=== PATIENT | male | born 1985 | race African-American/Black ===

== ENCOUNTER 2017-04-17 12:33 | Emergency (ER) | payer MEDICAID, OTHER ==
[~2017-04-17] VITALS: Ht 172.7 cm; Wt 110.0 kg
[~2017-04-17 12:33] MED LIST: AMLO10TA55 PO; ASPI81 PO; CLON.2 PO; LOSA50TA37 PO; PHEN100C23 PO; SIMV20TA6 PO
[2017-04-17 14:34] VITALS: BP 133/93
== END 2017-04-17 14:42 | disposition home or self-care (01) ==
LOC: EMS 12:35
DX: Z76.0 Encounter for issue of repeat prescription (principal); I50.9 Heart failure, unspecified; E78.00 Pure hypercholesterolemia, unspecified; Z79.82 Long term (current) use of aspirin
CPT/HCPCS: 99283

== ENCOUNTER 2021-11-29 13:17 | Inpatient (IN) | payer OTHER ==
[~2021-11-29] VITALS: Ht 175.3 cm; Wt 127.7 kg
[~2021-11-29 13:17] MED LIST changes: +ACET-2247 PO; +ASPI-1450 PO; -ASPI81 PO; -CLON.2 PO; +CLON0.1T2 PO; +DSS100 PO; +FAMO20 PO; +FURO40 PO; +HYDR10TA31 PO; -LOSA50TA37 PO; +SIMV-261 PO; -SIMV20TA6 PO; +SPIR-37 PO
[2021-11-29] MEDS ORDERED: 0.9% SODIUM CHLORIDE 10 ML SYRINGE IVP PRN (14:15)
[2021-11-29] MEDS ORDERED: ACETAMINOPHEN 1000 MG/ISO-OSM 100 ML IV ONE (14:15)
[2021-11-29 14:31] LABS: COVID AG,FIA SOURCE NASOPHARYNGEAL
[2021-11-29] MEDS ORDERED: ALBUTEROL SULFATE HFA 90 MCG/PUFF 8 GM INHALER IH ONE (15:00)
[2021-11-29 15:15] LABS: APPEARANCE,URINE CLOUDY (CLEAR); GLUCOSE, URINE (UA) NEGATIVE (NEGATIVE); KETONES,URINE NEGATIVE (NEGATIVE); LEUKOCYTE ESTERASE ,URINE NEGATIVE (NEGATIVE); NITRATE,URINE NEGATIVE (NEGATIVE); OCCULT BLOOD,URINE MODERATE (NEGATIVE); PROTEIN,URINE SEE CONFIRM (NEGATIVE)
[2021-11-29 15:27] LABS: BASOPHILS % (AUTO) 1.1 % (0.0-2.0); EOSINOPHILS % (AUTO) 0.1 % (1.0-6.0); HEMATOCRIT 53.6 % (41-53); HEMOGLOBIN 14.4 g/dL (13.5-17.5); LYMPHOCYTES # (AUTO) 1.9 K/uL (1.0-4.8); LYMPHOCYTES % (AUTO) 12.5 % (22.0-44.0); MEAN CORPUSCULAR HEMOGLOBIN 18.3 pg (26.0-34.0); MEAN CORPUSCULAR HGB CONC 26.9 G/dL (31.0-37.0); MEAN CORPUSCULAR VOLUME 68 fL (80-100); MONOCYTES # (AUTO) 0.5 K/uL (0.1-1.0); NEUTROPHILS % (AUTO) 83.3 % (40.0-70.0); PLATELET COUNT (AUTO) 218 K/uL (150-450); RED BLOOD CELL COUNT(AUTO) 7.87 MIL/uL (4.50-5.90); RED CELL DISTRIBUTION WIDTH 28.4 % (11.5-14.5)
[2021-11-29] MEDS ORDERED: DEXAMETHASONE SOD PHOS 4 MG/ML VIAL IVP ONE (15:30)
[2021-11-29] MEDS ORDERED: ALBUTEROL SULFATE 5 MG/ML 20 ML NEB SOLN [BULK] NEB ONE (15:30)
[2021-11-29] MEDS ORDERED: IPRATROPIUM BROMIDE 0.5 MG/2.5 ML NEB SOLUTION NEB ONE (15:30)
[2021-11-29] MEDS ORDERED: AZITHROMYCIN 500 MG/NS 250 ML IV ONE (15:30)
[2021-11-29] MEDS ORDERED: CefTRIAXone 1 GM/DEXTROSE 50 ML IV ONE (15:30)
[2021-11-29 15:35] LABS: BILIRUBIN,URINE PRELIM. POSITIVE (NEGATIVE)
[2021-11-29 15:37] LABS: INFLUENZA TYPE A NEGATIVE FOR TYPE A (NEGATIVE); INFLUENZA TYPE B NEGATIVE FOR TYPE B (NEGATIVE)
[2021-11-29] MEDS ORDERED: NOREPINEPHRINE 4 MG/D5%-WATER 250 ML IV ONE (15:44)
[2021-11-29 15:46] LABS: LACTIC ACID 1.9 mmol/L (0.4-2.0)
[2021-11-29 15:47] LABS: ABG BASE EXCESS -2.1 mmol/L (-2.0-3.0); ABG CARBOXYHEMOGLOBIN 2.2 % (0.0-1.5); ABG HCO3 20.6 mmol/L (22.0-26.0); ABG METHEMOGLOBIN 0.1 % (0.0-1.5); ABG OXYGEN CONTENT 17.3 mL/dL (15.0-23.0); ABG OXYHEMOGLOBIN 79.9 % (94.0-100.0); ABG TOTAL HEMOGLOBIN 15.4 G/dL (12.0-18.0); PO2, ARTERIAL BG 65.8 mmHg (92.0-100.0); SOURCE, BLOOD GAS ARTERIAL; TEMPERATURE, FAHRENHEIT, BG 102.9 FAHREN (96.0-98.6)
[2021-11-29 15:48] LABS: ABG A-A DIFF O2 554.7 mmHg (10-20.0); ABG OXYGEN SATURATION 81.8 % (95.0-98.0); ABG PCO2 86 mmHg (35-45); ABG PH 7.125 (7.350-7.450); O2 DEVICE,BLOOD GAS VENTILATOR (ROOM AIR); PEEP,BG 8 cm H2O; SITE, BLOOD GAS RT FEMORAL; SPONTANEOUS VT, BG 375 ml; VENT MODE, BG Press. Control Vent (ROOM AIR)
[2021-11-29 15:48] LABS: D-DIMER 6.29 mg/L FEU (0.00-0.50); INR 1.3 (0.9-1.1); PROTHROMBIN TIME 13.3 SEC (9.4-11.6)
[2021-11-29 15:51] LABS: CREATININE 2.52 mg/dL (0.60-1.30); POTASSIUM 5.6 mmol/L (3.5-5.1)
[2021-11-29 15:55] LABS: BACTERIA,URINE Few /HPF (None Seen); SQUAMOUS EPITHELIAL CELL,UR Few /LPF (None Seen); SULFOSALICYLIC ACID,URINE 4+ (Negative)
[2021-11-29 15:57] LABS: BILIRUBIN,TOTAL 0.6 mg/dL (0.1-1.0); TOTAL PROTEIN, SERUM 6.8 g/dL (6.4-8.2)
[2021-11-29] MEDS ORDERED: BUMETANIDE 0.25 MG/ML 4 ML VIAL ONE (16:30)
[2021-11-29 16:39] LABS: BAND NEUTROPHILS % (MANUAL) 16 % (0-5); LYMPHOCYTES % (MANUAL) 16 % (22-44); SEGMENTED NEUTROPHILS % 61 % (40-70)
[2021-11-29 16:40] LABS: MONOCYTES % (MANUAL) 7 % (2-9)
[2021-11-29] MEDS: NOREPINEPHRINE 4 MG/D5%-WATER 250 ML IV PRN ×2 (17:00→22:25)
[2021-11-29] MEDS ORDERED: SODIUM CHLORIDE 0.9% 2,500 ML IV ONE (17:15)
[2021-11-29 19:18] LABS: ANION GAP 7 mmol/L (8-16); CALCIUM, TOTAL 8.2 mg/dL (8.8-10.5); CARBON DIOXIDE 29 mmol/L (22-29); CHLORIDE 104 mmol/L (98-107); CREATININE 3.36 mg/dL (0.60-1.30); GLOMERULAR FILTR. RATE CALC 25 mL/min (>60); GLUCOSE,RANDOM 101 mg/dL (70-110); POTASSIUM 5.5 mmol/L (3.5-5.1); SODIUM SERUM 140 mmol/L (136-145); UREA NITROGEN, BLOOD 33 mg/dL (7-18)
[2021-11-29 19:20] LABS: PHOSPHORUS 3.9 mg/dL (2.5-4.9)
[2021-11-29 19:32] LABS: LACTIC ACID 3.5 mmol/L (0.4-2.0)
[2021-11-29] MEDS ORDERED: *CLINICAL-CEFEPIME DOSING CLINICAL ONE (20:15)
[2021-11-29] MEDS: DOPamine 400MG/D5W[STANDARD] 250 ML IV PRN ×2 (20:17→22:24)
[2021-11-29] MEDS ORDERED: HYDROCODONE/ACETAMINOPHEN 5-325 MG TABLET PO PRN (21:00)
[2021-11-29] MEDS ORDERED: BISACODYL 10 MG RECTAL RECTAL SUPPOSITORY PR PRN (21:00)
[2021-11-29] MEDS ORDERED: IPRATROPIUM BROMIDE 0.5 MG/2.5 ML NEB SOLUTION NEB PRN (21:00)
[2021-11-29] MEDS ORDERED: ALBUTEROL SULFATE 2.5 MG/0.5 ML NEB SOLUTION NEB PRN (21:00)
[2021-11-29] MEDS ORDERED: MAGNESIUM HYDROXIDE SUSPENSION 30 ML UDCUP PO PRN (21:00)
[2021-11-29] MEDS: DOCUSATE SODIUM 100 MG CAPSULE PO SCH (21:00)
[2021-11-29] MEDS ORDERED: ONDANSETRON HCL 4 MG/2 ML VIAL IVP PRN (21:00)
[2021-11-29] MEDS ORDERED: ZOLPIDEM TARTRATE 5 MG TABLET PO PRN (21:00)
[2021-11-29] MEDS ORDERED: ACETAMINOPHEN 325 MG TABLET PO PRN (21:00)
[2021-11-29] MEDS ORDERED: LORazepam 2 MG/ML VIAL ONE (21:17)
[2021-11-29] MEDS ORDERED: LORazepam 2 MG/ML VIAL IVP ONE (21:30)
[2021-11-29] MEDS: MetroNIDAZOLE 500 MG/NACL 100 ML IV SCH (21:47)
[2021-11-29 21:59] LABS: PHENYTOIN (DILANTIN) 0.7 mcg/mL (10.0-20.0)
[2021-11-29] MEDS: LevETIRAcetam 500 MG in DEXTROSE 5%-WATER 100 ML IV SCH (22:21)
[2021-11-29] MEDS: CEFEPIME HCL 2 GM in DEXTROSE 5%-WATER 50 ML IV SCH (22:21)
[2021-11-30 00:30] VITALS: BP 110/49
[2021-11-30] MEDS: HEPARIN SODIUM,PORCINE 5,000 UNITS/ML VIAL SQ SCH ×3 (00:41→15:59)
[2021-11-30] MEDS: SODIUM CHLORIDE 0.9% 1,000 ML IV SCH ×2 (00:42→12:35)
[2021-11-30] MEDS: DOPamine 400MG/D5W[STANDARD] 250 ML IV PRN ×2 (00:43→04:54)
[2021-11-30] MEDS: NOREPINEPHRINE 4 MG/D5%-WATER 250 ML IV PRN ×2 (00:44→15:59)
[2021-11-30 04:00] VITALS: BP 116/68
[2021-11-30] MEDS: MetroNIDAZOLE 500 MG/NACL 100 ML IV SCH ×3 (04:55→22:56)
[2021-11-30 05:23] LABS: HEMATOCRIT 53.2 % (41-53); HEMOGLOBIN 15.1 g/dL (13.5-17.5); MEAN CORPUSCULAR HGB CONC 28.3 G/dL (31.0-37.0); MEAN CORPUSCULAR VOLUME 67 fL (80-100); PLATELET COUNT (AUTO) 145 K/uL (150-450); RED BLOOD CELL COUNT(AUTO) 7.93 MIL/uL (4.50-5.90)
[2021-11-30 05:43] LABS: ALBUMIN 1.4 g/dL (3.4-5.0); BILIRUBIN,TOTAL 0.8 mg/dL (0.1-1.0); CALCIUM, TOTAL 7.9 mg/dL (8.8-10.5); CREATININE 4.41 mg/dL (0.60-1.30); POTASSIUM 5.1 mmol/L (3.5-5.1); TOTAL PROTEIN, SERUM 6.3 g/dL (6.4-8.2)
[2021-11-30 06:00] VITALS: BP 107/49
[2021-11-30 08:22] LABS: MAGNESIUM 2.4 mg/dL (1.80-2.40); PHOSPHORUS 2.3 mg/dL (2.5-4.9)
[2021-11-30] MEDS: SODIUM ZIRCONIUM CYCLOSILICATE 5 GM POWDER PACKET PO SCH ×3 (09:00→21:00)
[2021-11-30] MEDS: DOCUSATE SODIUM 100 MG CAPSULE PO SCH ×2 (09:00→21:00)
[2021-11-30] MEDS: PANTOPRAZOLE SODIUM 40 MG/VIAL IVP SCH (09:00)
[2021-11-30 09:03] LABS: BAND NEUTROPHILS % (MANUAL) 20 % (0-5); LYMPHOCYTES % (MANUAL) 14 % (22-44); MONOCYTES % (MANUAL) 6 % (2-9); SEGMENTED NEUTROPHILS % 60 % (40-70)
[2021-11-30 09:06] LABS: PLATELET MORPHOLOGY COMMENT GIANT PLTS PRESENT
[2021-11-30] MEDS: LevETIRAcetam 500 MG in DEXTROSE 5%-WATER 100 ML IV SCH ×2 (09:43→22:59)
[2021-11-30] MEDS: CEFEPIME HCL 2 GM in DEXTROSE 5%-WATER 50 ML IV SCH ×2 (09:46→22:58)
[2021-11-30] MEDS ORDERED: DOPamine 400MG/D5W[STANDARD] 250 ML IV ONE (12:32)
[2021-11-30] MEDS ORDERED: DOPamine 400MG/D5W[STANDARD] 250 ML IV PRN (14:00)
[2021-11-30 14:08] LABS: ABG BASE EXCESS -2.6 mmol/L (-2.0-3.0); ABG CARBOXYHEMOGLOBIN 1.4 % (0.0-1.5); ABG HCO3 22.4 mmol/L (22.0-26.0); ABG METHEMOGLOBIN 0.1 % (0.0-1.5); ABG OXYGEN CONTENT 20.2 mL/dL (15.0-23.0); ABG OXYGEN SATURATION 95.9 % (95.0-98.0); ABG OXYHEMOGLOBIN 94.5 % (94.0-100.0); ABG PCO2 43 mmHg (35-45); ABG PH 7.351 (7.350-7.450); ABG TOTAL HEMOGLOBIN 15.2 G/dL (12.0-18.0); PO2, ARTERIAL BG 86.2 mmHg (92.0-100.0); SOURCE, BLOOD GAS ARTERIAL
[2021-11-30 14:09] LABS: ABG A-A DIFF O2 582.2 mmHg (10-20.0); O2 DEVICE,BLOOD GAS VENTILATOR (ROOM AIR); PEEP,BG 10 cm H2O; SITE, BLOOD GAS RT RADIAL; SPONTANEOUS VT, BG 600 ml; VENT MODE, BG Press. Control Vent (ROOM AIR)
[2021-11-30] MEDS: DOXYCYCLINE HYCLATE 100 MG in DEXTROSE 5%-WATER 100 ML IV SCH (14:22)
[2021-11-30 16:00] VITALS: BP 86/63
[2021-12-01] MEDS: SODIUM CHLORIDE 0.9% 1,000 ML IV SCH ×2 (01:51→13:26)
[2021-12-01 05:25] LABS: HEMATOCRIT 45.8 % (41-53); HEMOGLOBIN 13.1 g/dL (13.5-17.5); MEAN CORPUSCULAR HEMOGLOBIN 18.9 pg (26.0-34.0); MEAN CORPUSCULAR HGB CONC 28.6 G/dL (31.0-37.0); MEAN CORPUSCULAR VOLUME 66 fL (80-100); PLATELET COUNT (AUTO) 102 K/uL (150-450); RED BLOOD CELL COUNT(AUTO) 6.93 MIL/uL (4.50-5.90); RED CELL DISTRIBUTION WIDTH 28.4 % (11.5-14.5)
[2021-12-01 05:28] LABS: ALBUMIN 1.4 g/dL (3.4-5.0); BILIRUBIN,TOTAL 1.5 mg/dL (0.1-1.0); CALCIUM, TOTAL 7.9 mg/dL (8.8-10.5); CREATININE 5.55 mg/dL (0.60-1.30)
[2021-12-01 05:34] LABS: POTASSIUM 6.2 mmol/L (3.5-5.1)
[2021-12-01 07:00] LABS: BAND NEUTROPHILS % (MANUAL) 23 % (0-5); LYMPHOCYTES % (MANUAL) 7 % (22-44); MONOCYTES % (MANUAL) 1 % (2-9); SEGMENTED NEUTROPHILS % 69 % (40-70)
[2021-12-01] MEDS ORDERED: SODIUM CHLORIDE 0.9% 500 ML IV ONE (07:00)
[2021-12-01] MEDS: MetroNIDAZOLE 500 MG/NACL 100 ML IV SCH (07:07)
[2021-12-01 08:00] VITALS: BP 109/85
[2021-12-01] MEDS: DOXYCYCLINE HYCLATE 100 MG in DEXTROSE 5%-WATER 100 ML IV SCH (08:10)
[2021-12-01] MEDS: HEPARIN SODIUM,PORCINE 5,000 UNITS/ML VIAL SQ SCH ×4 (08:38→23:49)
[2021-12-01] MEDS: DOCUSATE SODIUM 100 MG CAPSULE PO SCH ×2 (09:00→20:40)
[2021-12-01] MEDS: SODIUM ZIRCONIUM CYCLOSILICATE 5 GM POWDER PACKET PO SCH ×3 (09:00→20:41)
[2021-12-01] MEDS: LevETIRAcetam 500 MG in DEXTROSE 5%-WATER 100 ML IV SCH ×2 (10:33→22:26)
[2021-12-01] MEDS: PANTOPRAZOLE SODIUM 40 MG/VIAL IVP SCH (10:36)
[2021-12-01] MEDS: ETHYL ALCOHOL 62% ANTISEPTIC NASAL INHALANT 0.6 ML AMPUL NASAL SCH ×2 (10:36→20:44)
[2021-12-01] MEDS: CEFEPIME HCL 2 GM in DEXTROSE 5%-WATER 50 ML IV SCH (10:38)
[2021-12-01] MEDS: NOREPINEPHRINE 4 MG/D5%-WATER 250 ML IV PRN ×3 (10:55→20:35)
[2021-12-01 12:00] VITALS: BP 128/73
[2021-12-01] MEDS ORDERED: *CLINICAL-LEVOFLOXACIN IVPB DOSING CLINICAL ONE (12:30)
[2021-12-01] MEDS: LEVOFLOXACIN 750 MG/D5% WATER 150 ML IV SCH (13:20)
[2021-12-01] MEDS: CLINDAMYCIN 600 MG/D5% WATER 50 ML IV SCH ×2 (13:21→20:43)
[2021-12-01 13:38] LABS: CALCIUM, TOTAL 8.2 mg/dL (8.8-10.5); CREATININE 5.81 mg/dL (0.60-1.30); POTASSIUM 5.8 mmol/L (3.5-5.1)
[2021-12-01] MEDS ORDERED: BUMETANIDE 0.25 MG/ML 4 ML VIAL IVP ONE (13:45)
[2021-12-01 14:12] LABS: C-REACTIVE PROTEIN QUANT 45.99 mg/dL (0.00-0.30)
[2021-12-01 15:48] LABS: ABG BASE EXCESS -6.3 mmol/L (-2.0-3.0); ABG CARBOXYHEMOGLOBIN 1.3 % (0.0-1.5); ABG HCO3 18.7 mmol/L (22.0-26.0); ABG METHEMOGLOBIN 0.1 % (0.0-1.5); ABG OXYGEN CONTENT 14.6 mL/dL (15.0-23.0); ABG OXYHEMOGLOBIN 75.4 % (94.0-100.0); ABG PCO2 53 mmHg (35-45); ABG PH 7.226 (7.350-7.450); ABG TOTAL HEMOGLOBIN 13.8 G/dL (12.0-18.0); SOURCE, BLOOD GAS ARTERIAL; TEMPERATURE, FAHRENHEIT, BG 98.6 FAHREN (96.0-98.6)
[2021-12-01 15:49] LABS: ABG OXYGEN SATURATION 76.5 % (95.0-98.0); O2 DEVICE,BLOOD GAS VENTILATOR (ROOM AIR); PO2, ARTERIAL BG 47.5 mmHg (92.0-100.0); SITE, BLOOD GAS RT RADIAL; VENT MODE, BG Press. Control Vent (ROOM AIR)
[2021-12-01 15:50] LABS: PEEP,BG 8 cm H2O; SPONTANEOUS VT, BG 500 ml
[2021-12-01 16:00] VITALS: BP 112/98
[2021-12-01 20:00] VITALS: BP 130/76
[2021-12-02] VITALS (11 sets, daily range): BP systolic 104–155; BP diastolic 62–88
[2021-12-02] MEDS: NOREPINEPHRINE 4 MG/D5%-WATER 250 ML IV PRN ×3 (01:24→22:45)
[2021-12-02] MEDS: CLINDAMYCIN 600 MG/D5% WATER 50 ML IV SCH ×2 (03:57→14:17)
[2021-12-02 06:38] LABS: ALBUMIN 1.4 g/dL (3.4-5.0); BILIRUBIN,TOTAL 1.8 mg/dL (0.1-1.0); CALCIUM, TOTAL 8.4 mg/dL (8.8-10.5); CREATININE 6.38 mg/dL (0.60-1.30); POTASSIUM 5.5 mmol/L (3.5-5.1); TOTAL PROTEIN, SERUM 6.5 g/dL (6.4-8.2)
[2021-12-02 07:00] LABS: C-REACTIVE PROTEIN QUANT 29.5 mg/dL (0.00-0.30)
[2021-12-02 07:12] LABS: FIBRINOGEN 860 mg/dL (200-400); INR 1.2 (0.9-1.1); PROTHROMBIN TIME 12.9 SEC (9.4-11.6)
[2021-12-02 07:48] LABS: D-DIMER 6.53 mg/L FEU (0.00-0.50)
[2021-12-02] MEDS: ETHYL ALCOHOL 62% ANTISEPTIC NASAL INHALANT 0.6 ML AMPUL NASAL SCH (08:04)
[2021-12-02] MEDS: PANTOPRAZOLE SODIUM 40 MG/VIAL IVP SCH (08:04)
[2021-12-02] MEDS: HEPARIN SODIUM,PORCINE 5,000 UNITS/ML VIAL SQ SCH ×2 (08:04→16:54)
[2021-12-02] MEDS: DOCUSATE SODIUM 100 MG CAPSULE PO SCH ×2 (08:05→21:00)
[2021-12-02] MEDS: SODIUM ZIRCONIUM CYCLOSILICATE 5 GM POWDER PACKET PO SCH ×2 (08:05→21:00)
[2021-12-02 09:01] LABS: APPEARANCE,URINE CLOUDY (CLEAR); GLUCOSE, URINE (UA) NEGATIVE (NEGATIVE); KETONES,URINE TRACE mg/dL (NEGATIVE); LEUKOCYTE ESTERASE ,URINE NEGATIVE (NEGATIVE); NITRATE,URINE NEGATIVE (NEGATIVE); OCCULT BLOOD,URINE MODERATE (NEGATIVE); PROTEIN,URINE SEE CONFIRM (NEGATIVE); UROBILINOGEN,URINE 0.2 mg/dL (<=1.0)
[2021-12-02 09:10] LABS: BILIRUBIN,URINE PRELIM. POSITIVE (NEGATIVE)
[2021-12-02 09:30] LABS: BACTERIA,URINE Moderate /HPF (None Seen); SULFOSALICYLIC ACID,URINE 3+ (Negative); WBC,URINE None Seen /HPF (0-5)
[2021-12-02 09:31] LABS: COARSE GRANULAR CASTS,URINE 0-2 /LPF (None Seen); HYALINE CASTS, URINE 0-2 /LPF (None Seen)
[2021-12-02] MEDS ORDERED: SODIUM CHLORIDE 0.9% 250 ML IV ONE (10:03)
[2021-12-02] MEDS: LevETIRAcetam 500 MG in DEXTROSE 5%-WATER 100 ML IV SCH (10:11)
[2021-12-02] MEDS: DEXAMETHASONE SOD PHOS 4 MG/ML VIAL IVP SCH (10:48)
[2021-12-02 10:54] LABS: HEMATOCRIT 44.3 % (41-53); HEMOGLOBIN 12.6 g/dL (13.5-17.5); MEAN CORPUSCULAR HEMOGLOBIN 18.9 pg (26.0-34.0); MEAN CORPUSCULAR HGB CONC 28.5 G/dL (31.0-37.0); MEAN CORPUSCULAR VOLUME 66 fL (80-100); PLATELET COUNT (AUTO) 94 K/uL (150-450); RED BLOOD CELL COUNT(AUTO) 6.67 MIL/uL (4.50-5.90); RED CELL DISTRIBUTION WIDTH 28.7 % (11.5-14.5)
[2021-12-02] MEDS: CEFEPIME HCL 2 GM in DEXTROSE 5%-WATER 50 ML IV SCH (11:10)
[2021-12-02] MEDS ORDERED: BUMETANIDE 0.25 MG/ML 4 ML VIAL IVP ONE (11:30)
[2021-12-02 11:40] LABS: BAND NEUTROPHILS % (MANUAL) 20 % (0-5); LYMPHOCYTES % (MANUAL) 5 % (22-44); MONOCYTES % (MANUAL) 3 % (2-9); SEGMENTED NEUTROPHILS % 72 % (40-70)
[2021-12-02] MEDS ORDERED: REMDESIVIR 200 MG in SODIUM CHLORIDE 0.9% 250 ML IV ONE (12:00)
[2021-12-02 12:08] LABS: FIBRIN SPLIT PRODUCTS Greater than 40 mcg/mL (<10)
[2021-12-02 14:33] LABS: ABG BASE EXCESS -6.5 mmol/L (-2.0-3.0); ABG CARBOXYHEMOGLOBIN 1.1 % (0.0-1.5); ABG HCO3 18.8 mmol/L (22.0-26.0); ABG METHEMOGLOBIN 0.1 % (0.0-1.5); ABG OXYGEN CONTENT 14.5 mL/dL (15.0-23.0); ABG OXYHEMOGLOBIN 77.8 % (94.0-100.0); ABG PCO2 47 mmHg (35-45); ABG TOTAL HEMOGLOBIN 13.3 G/dL (12.0-18.0); SOURCE, BLOOD GAS ARTERIAL; TEMPERATURE, FAHRENHEIT, BG 98.1 FAHREN (96.0-98.6)
[2021-12-02 14:34] LABS: ABG OXYGEN SATURATION 78.7 % (95.0-98.0); ABG PH 7.258 (7.350-7.450); O2 DEVICE,BLOOD GAS VENTILATOR (ROOM AIR); PO2, ARTERIAL BG 48.3 mmHg (92.0-100.0); SITE, BLOOD GAS LFT BRACHIAL
[2021-12-02 14:35] LABS: PEEP,BG 12 cm H2O; SPONTANEOUS VT, BG 555 ml; VENT MODE, BG Press. Control Vent (ROOM AIR)
[2021-12-02 14:36] LABS: I:E RATIO, BG 1 sec.
[2021-12-02] MEDS: IPRATROPIUM BROMIDE 0.5 MG/2.5 ML NEB SOLUTION NEB PRN ×2 (15:03→23:42)
[2021-12-02] MEDS: ALBUTEROL SULFATE 2.5 MG/0.5 ML NEB SOLUTION NEB PRN ×3 (15:03→23:42)
[2021-12-02] MEDS: ACETYLCYSTEINE 10% 100 MG/ML 4 ML NEB SOLUTION NEB SCH ×3 (15:04→23:42)
[2021-12-02 16:03] LABS: CALCIUM, TOTAL 8.6 mg/dL (8.8-10.5); CREATININE 6.65 mg/dL (0.60-1.30); POTASSIUM 5.9 mmol/L (3.5-5.1)
[2021-12-02] MEDS: ALBUMIN HUMAN 25%-25GM/100ML 100 ML IV SCH (16:54)
[2021-12-02] MEDS ORDERED: HYDROmorphone 2 MG/ML VIAL IVP ONE (18:45)
[2021-12-02] MEDS ORDERED: HEPARIN SODIUM,PORCINE 1,000 UNITS/ML VIAL IVP ONE (19:00)
[2021-12-03] VITALS (10 sets, daily range): BP systolic 87–136; BP diastolic 42–75
[2021-12-03] MEDS: HEPARIN SODIUM,PORCINE 5,000 UNITS/ML VIAL SQ SCH ×3 (01:03→16:33)
[2021-12-03] MEDS: ALBUMIN HUMAN 25%-25GM/100ML 100 ML IV SCH ×4 (01:03→23:57)
[2021-12-03] MEDS: CLINDAMYCIN 600 MG/D5% WATER 50 ML IV SCH ×4 (01:04→23:57)
[2021-12-03] MEDS: ETHYL ALCOHOL 62% ANTISEPTIC NASAL INHALANT 0.6 ML AMPUL NASAL SCH ×3 (01:04→23:56)
[2021-12-03] MEDS: LevETIRAcetam 500 MG in DEXTROSE 5%-WATER 100 ML IV SCH (01:04)
[2021-12-03] MEDS ORDERED: SODIUM CHLORIDE 0.9% 250 ML IV ONE (02:38)
[2021-12-03] MEDS: MORPHINE SULFATE 2 MG/ML SYRINGE IVP PRN ×2 (03:19→15:17)
[2021-12-03] MEDS: ALBUTEROL SULFATE 2.5 MG/0.5 ML NEB SOLUTION NEB PRN ×5 (03:20→22:54)
[2021-12-03] MEDS: IPRATROPIUM BROMIDE 0.5 MG/2.5 ML NEB SOLUTION NEB PRN ×5 (03:20→22:53)
[2021-12-03] MEDS: ACETYLCYSTEINE 10% 100 MG/ML 4 ML NEB SOLUTION NEB SCH ×6 (03:20→22:53)
[2021-12-03] MEDS ORDERED: LevETIRAcetam 500 MG in DEXTROSE 5%-WATER 100 ML IV ONE (05:00)
[2021-12-03] MEDS ORDERED: LORazepam 2 MG/ML VIAL IVP ONE (05:00)
[2021-12-03] MEDS: NOREPINEPHRINE 4 MG/D5%-WATER 250 ML IV PRN (05:34)
[2021-12-03 06:01] LABS: ALBUMIN 1.9 g/dL (3.4-5.0); C-REACTIVE PROTEIN QUANT 24.27 mg/dL (0.00-0.30); CALCIUM, TOTAL 8.6 mg/dL (8.8-10.5); CREATININE 6.25 mg/dL (0.60-1.30); POTASSIUM 5.5 mmol/L (3.5-5.1); TOTAL PROTEIN, SERUM 6.7 g/dL (6.4-8.2)
[2021-12-03 07:41] LABS: HEMATOCRIT 37.5 % (41-53); HEMOGLOBIN 11.5 g/dL (13.5-17.5); MEAN CORPUSCULAR HEMOGLOBIN 22.1 pg (26.0-34.0); MEAN CORPUSCULAR HGB CONC 30.6 G/dL (31.0-37.0); MEAN CORPUSCULAR VOLUME 72 fL (80-100); RED CELL DISTRIBUTION WIDTH 28.5 % (11.5-14.5)
[2021-12-03 08:21] LABS: PLATELET COUNT (AUTO) 73 K/uL (150-450)
[2021-12-03] MEDS: DEXAMETHASONE SOD PHOS 4 MG/ML VIAL IVP SCH (08:43)
[2021-12-03] MEDS: SODIUM ZIRCONIUM CYCLOSILICATE 5 GM POWDER PACKET PO SCH ×2 (08:43→21:00)
[2021-12-03] MEDS: DOCUSATE SODIUM 100 MG CAPSULE PO SCH ×2 (08:43→21:00)
[2021-12-03] MEDS: PANTOPRAZOLE SODIUM 40 MG/VIAL IVP SCH (08:43)
[2021-12-03 08:47] LABS: BAND NEUTROPHILS % (MANUAL) 17 % (0-5); LYMPHOCYTES % (MANUAL) 6 % (22-44); MONOCYTES % (MANUAL) 6 % (2-9); SEGMENTED NEUTROPHILS % 71 % (40-70)
[2021-12-03] MEDS: CEFEPIME HCL 2 GM in DEXTROSE 5%-WATER 50 ML IV SCH (10:48)
[2021-12-03] MEDS ORDERED: SODIUM CHLORIDE 0.9% 2,000 ML ONE (11:27)
[2021-12-03] MEDS: REMDESIVIR 100 MG in SODIUM CHLORIDE 0.9% 250 ML IV SCH (12:54)
[2021-12-03] MEDS: LEVOFLOXACIN 750 MG/D5% WATER 150 ML IV SCH (12:55)
[2021-12-03] MEDS ORDERED: SODIUM CHLORIDE 0.9% 500 ML IV ONE (12:56)
[2021-12-03] MEDS: LevETIRAcetam 1,000 MG in DEXTROSE 5%-WATER 100 ML IV SCH (17:28)
[2021-12-03] MEDS: LORazepam 2 MG/ML VIAL IVP PRN (18:04)
[2021-12-03 18:13] LABS: HEMATOCRIT 35.9 % (41-53); HEMOGLOBIN 10.7 g/dL (13.5-17.5); MEAN CORPUSCULAR HEMOGLOBIN 20.3 pg (26.0-34.0); MEAN CORPUSCULAR HGB CONC 29.8 G/dL (31.0-37.0); MEAN CORPUSCULAR VOLUME 68 fL (80-100); PLATELET COUNT (AUTO) 75 K/uL (150-450); RED BLOOD CELL COUNT(AUTO) 5.27 MIL/uL (4.50-5.90); RED CELL DISTRIBUTION WIDTH 28.9 % (11.5-14.5)
[2021-12-03] MEDS ORDERED: TOCILIZUMAB 800 MG in SODIUM CHLORIDE 0.9% 60 ML IV ONE (19:30)
[2021-12-03 20:21] LABS: BAND NEUTROPHILS % (MANUAL) 19 % (0-5); LYMPHOCYTES % (MANUAL) 5 % (22-44); MONOCYTES % (MANUAL) 9 % (2-9); SEGMENTED NEUTROPHILS % 67 % (40-70)
[2021-12-04] VITALS: BP 117/73
[2021-12-04] MEDS: HEPARIN SODIUM,PORCINE 5,000 UNITS/ML VIAL SQ SCH ×4 (01:53→23:54)
[2021-12-04] MEDS: ALBUTEROL SULFATE 2.5 MG/0.5 ML NEB SOLUTION NEB PRN ×2 (02:54→08:18)
[2021-12-04] MEDS: IPRATROPIUM BROMIDE 0.5 MG/2.5 ML NEB SOLUTION NEB PRN ×2 (02:54→08:18)
[2021-12-04] MEDS: ACETYLCYSTEINE 10% 100 MG/ML 4 ML NEB SOLUTION NEB SCH ×2 (02:54→08:18)
[2021-12-04] MEDS: CLINDAMYCIN 600 MG/D5% WATER 50 ML IV SCH ×3 (03:25→21:50)
[2021-12-04] MEDS: LORazepam 2 MG/ML VIAL IVP PRN ×3 (03:25→21:50)
[2021-12-04 04:00] VITALS: BP 110/60
[2021-12-04 06:25] LABS: HEMATOCRIT 29.5 % (41-53); HEMOGLOBIN 10.7 g/dL (13.5-17.5); MEAN CORPUSCULAR HGB CONC 36.2 G/dL (31.0-37.0); MEAN CORPUSCULAR VOLUME 86 fL (80-100); RED BLOOD CELL COUNT(AUTO) 3.45 MIL/uL (4.50-5.90); RED CELL DISTRIBUTION WIDTH 28.5 % (11.5-14.5)
[2021-12-04 06:39] LABS: ALBUMIN 3.1 g/dL (3.4-5.0); BILIRUBIN,TOTAL 1.4 mg/dL (0.1-1.0); CALCIUM, TOTAL 8.3 mg/dL (8.8-10.5); CREATININE 7.04 mg/dL (0.60-1.30); MAGNESIUM 2.4 mg/dL (1.80-2.40); PHOSPHORUS 6.6 mg/dL (2.5-4.9); POTASSIUM 5.5 mmol/L (3.5-5.1); TOTAL PROTEIN, SERUM 7.3 g/dL (6.4-8.2)
[2021-12-04 08:00] VITALS: BP 111/49
[2021-12-04] MEDS: DEXAMETHASONE SOD PHOS 4 MG/ML VIAL IVP SCH (08:49)
[2021-12-04] MEDS: DOCUSATE SODIUM 100 MG CAPSULE PO SCH ×2 (08:50→21:49)
[2021-12-04] MEDS: PANTOPRAZOLE SODIUM 40 MG/VIAL IVP SCH (08:50)
[2021-12-04] MEDS: ALBUMIN HUMAN 25%-25GM/100ML 100 ML IV SCH ×3 (08:50→23:54)
[2021-12-04] MEDS: ETHYL ALCOHOL 62% ANTISEPTIC NASAL INHALANT 0.6 ML AMPUL NASAL SCH ×2 (08:50→21:50)
[2021-12-04] MEDS: SODIUM ZIRCONIUM CYCLOSILICATE 5 GM POWDER PACKET PO SCH ×2 (08:51→21:49)
[2021-12-04 09:45] LABS: ABG BASE EXCESS -9.6 mmol/L (-2.0-3.0); ABG HCO3 16.6 mmol/L (22.0-26.0); ABG METHEMOGLOBIN 0.3 % (0.0-1.5); ABG OXYGEN CONTENT 15.1 mL/dL (15.0-23.0); ABG OXYHEMOGLOBIN 84.9 % (94.0-100.0); ABG PCO2 50 mmHg (35-45); ABG TOTAL HEMOGLOBIN 12.6 G/dL (12.0-18.0); PO2, ARTERIAL BG 60.3 mmHg (92.0-100.0); SOURCE, BLOOD GAS ARTERIAL; TEMPERATURE, FAHRENHEIT, BG 97.5 FAHREN (96.0-98.6)
[2021-12-04 09:46] LABS: ABG A-A DIFF O2 604.2 mmHg (10-20.0); ABG PH 7.189 (7.350-7.450); O2 DEVICE,BLOOD GAS VENT (ROOM AIR); SITE, BLOOD GAS RT RADIAL
[2021-12-04 09:47] LABS: PEEP,BG 14 cm H2O; SPONTANEOUS VT, BG 519 ml; VENT MODE, BG Press. Control Vent (ROOM AIR)
[2021-12-04] MEDS: CEFEPIME HCL 2 GM in DEXTROSE 5%-WATER 50 ML IV SCH (10:06)
[2021-12-04 10:17] LABS: PLATELET COUNT (AUTO) 56 K/uL (150-450)
[2021-12-04 10:21] LABS: BAND NEUTROPHILS % (MANUAL) 10 % (0-5); LYMPHOCYTES % (MANUAL) 9 % (22-44); MONOCYTES % (MANUAL) 9 % (2-9); SEGMENTED NEUTROPHILS % 72 % (40-70)
[2021-12-04] MEDS ORDERED: ACETYLCYSTEINE 10% 100 MG/ML 4 ML NEB SOLUTION NEB PRN (11:00)
[2021-12-04 12:00] VITALS: BP 112/72
[2021-12-04] MEDS: REMDESIVIR 100 MG in SODIUM CHLORIDE 0.9% 250 ML IV SCH (12:26)
[2021-12-04] MEDS ORDERED: SODIUM CHLORIDE 0.9% 250 ML IV ONE (12:47)
[2021-12-04] MEDS: MORPHINE SULFATE 2 MG/ML SYRINGE IVP PRN (15:21)
[2021-12-04 16:00] VITALS: BP 128/66
[2021-12-04 17:06] LABS: S PNEUMO SOURCE Urine; STREP PNEUMONIAE AG URINE Negative (Negative)
[2021-12-04] MEDS ORDERED: HEPARIN SODIUM,PORCINE 1,000 UNITS/ML VIAL IVP ONE ×2 (17:17→17:18)
[2021-12-04] MEDS: LevETIRAcetam 1,000 MG in DEXTROSE 5%-WATER 100 ML IV SCH (18:15)
[2021-12-05] VITALS (13 sets, daily range): BP systolic 80–128; BP diastolic 43–77
[2021-12-05] MEDS: CLINDAMYCIN 600 MG/D5% WATER 50 ML IV SCH ×3 (05:24→21:21)
[2021-12-05] MEDS: LevETIRAcetam 1,000 MG in DEXTROSE 5%-WATER 100 ML IV SCH ×2 (05:24→16:23)
[2021-12-05 06:16] LABS: HEMATOCRIT 35.4 % (41-53); HEMOGLOBIN 11.7 g/dL (13.5-17.5); MEAN CORPUSCULAR HEMOGLOBIN 25.5 pg (26.0-34.0); MEAN CORPUSCULAR VOLUME 77 fL (80-100); PLATELET COUNT (AUTO) 60 K/uL (150-450); RED BLOOD CELL COUNT(AUTO) 4.58 MIL/uL (4.50-5.90); RED CELL DISTRIBUTION WIDTH 28.7 % (11.5-14.5)
[2021-12-05 06:34] LABS: ALBUMIN 2.7 g/dL (3.4-5.0); BILIRUBIN,TOTAL 1.3 mg/dL (0.1-1.0); C-REACTIVE PROTEIN QUANT 13.83 mg/dL (0.00-0.30); CALCIUM, TOTAL 8.3 mg/dL (8.8-10.5); CREATININE 9.04 mg/dL (0.60-1.30); MAGNESIUM 2.5 mg/dL (1.80-2.40); TOTAL PROTEIN, SERUM 7.4 g/dL (6.4-8.2)
[2021-12-05 07:04] LABS: POTASSIUM 6.8 mmol/L (3.5-5.1)
[2021-12-05 07:31] LABS: BAND NEUTROPHILS % (MANUAL) 8 % (0-5); LYMPHOCYTES % (MANUAL) 8 % (22-44); MONOCYTES % (MANUAL) 10 % (2-9); SEGMENTED NEUTROPHILS % 74 % (40-70)
[2021-12-05 07:35] LABS: PHOSPHORUS 10.2 mg/dL (2.5-4.9)
[2021-12-05] MEDS: ALBUMIN HUMAN 25%-25GM/100ML 100 ML IV SCH ×3 (07:59→23:42)
[2021-12-05] MEDS: ETHYL ALCOHOL 62% ANTISEPTIC NASAL INHALANT 0.6 ML AMPUL NASAL SCH ×2 (08:00→21:20)
[2021-12-05] MEDS: DEXAMETHASONE SOD PHOS 4 MG/ML VIAL IVP SCH (08:00)
[2021-12-05] MEDS: PANTOPRAZOLE SODIUM 40 MG/VIAL IVP SCH (08:00)
[2021-12-05] MEDS: HEPARIN SODIUM,PORCINE 5,000 UNITS/ML VIAL SQ SCH ×3 (08:00→23:42)
[2021-12-05] MEDS: LORazepam 2 MG/ML VIAL IVP PRN ×2 (08:01→12:53)
[2021-12-05] MEDS: SODIUM ZIRCONIUM CYCLOSILICATE 5 GM POWDER PACKET PO SCH ×2 (08:52→21:20)
[2021-12-05] MEDS: DOCUSATE SODIUM 100 MG CAPSULE PO SCH ×2 (08:52→21:19)
[2021-12-05] MEDS ORDERED: DEXTROSE 50%-WATER 25 GM/50 ML SYRINGE IVP ONE (09:00)
[2021-12-05] MEDS ORDERED: INSULIN REGULAR, HUMAN 100 UNITS/ML IVP ONE (09:00)
[2021-12-05] MEDS ORDERED: CALCIUM GLUCONATE 100 MG/ML 10 ML IVP ONE ×2 (09:00→09:15)
[2021-12-05] MEDS ORDERED: DEXTROSE 50%-WATER 25 GM/50 ML SYRINGE IVP PRN (10:00)
[2021-12-05] MEDS: REMDESIVIR 100 MG in SODIUM CHLORIDE 0.9% 250 ML IV SCH (11:14)
[2021-12-05] MEDS ORDERED: SODIUM CHLORIDE 0.9% 2,000 ML ONE (12:04)
[2021-12-05] MEDS: NOREPINEPHRINE 4 MG/D5%-WATER 250 ML IV PRN ×3 (15:25→23:43)
[2021-12-05] MEDS ORDERED: LEVOFLOXACIN 500 MG/D5% WATER 100 ML IV SCH (16:00)
[2021-12-05] MEDS ORDERED: SODIUM CHLORIDE 0.9% 100 ML ONE (16:24)
[2021-12-05] MEDS: DEXMEDETOMIDINE HCL 400 MCG in SODIUM CHLORIDE 0.9% 96 ML IV PRN (17:29)
[2021-12-05] MEDS ORDERED: CEFEPIME HCL 1 GM in DEXTROSE 5%-WATER 50 ML IV SCH (18:00)
[2021-12-05] MEDS: VASOPRESSIN 40 UNITS in DEXTROSE 5%-WATER 98 ML IV PRN (22:19)
[2021-12-06] VITALS (13 sets, daily range): BP systolic 75–136; BP diastolic 43–79
[2021-12-06] MEDS: DEXMEDETOMIDINE HCL 400 MCG in SODIUM CHLORIDE 0.9% 96 ML IV PRN (03:08)
[2021-12-06] MEDS: NOREPINEPHRINE BITARTRATE 16 MG in DEXTROSE 5%-WATER 234 ML IV PRN ×2 (03:09→15:58)
[2021-12-06] MEDS: CLINDAMYCIN 600 MG/D5% WATER 50 ML IV SCH ×2 (05:06→13:03)
[2021-12-06] MEDS: LevETIRAcetam 1,000 MG in DEXTROSE 5%-WATER 100 ML IV SCH (05:06)
[2021-12-06 06:57] LABS: ALBUMIN 3.6 g/dL (3.4-5.0); BILIRUBIN,TOTAL 1.5 mg/dL (0.1-1.0); C-REACTIVE PROTEIN QUANT 8.73 mg/dL (0.00-0.30); CALCIUM, TOTAL 8.2 mg/dL (8.8-10.5); CREATININE 8.74 mg/dL (0.60-1.30); TOTAL PROTEIN, SERUM 7.6 g/dL (6.4-8.2)
[2021-12-06 07:11] LABS: POTASSIUM 7.1 mmol/L (3.5-5.1)
[2021-12-06] MEDS ORDERED: INSULIN REGULAR, HUMAN 100 UNITS/ML IVP ONE (07:30)
[2021-12-06] MEDS ORDERED: CALCIUM GLUCONATE 100 MG/ML 10 ML IVP ONE ×2 (07:30→17:58)
[2021-12-06] MEDS ORDERED: SODIUM BICARBONATE [ADULT] 8.4% 50 MEQ/50 ML SYRINGE IVP ONE ×2 (07:30→17:58)
[2021-12-06] MEDS ORDERED: AMINO ACIDS/PROTEIN HYDROLYS 30 ML TUBE NG SCH (08:00)
[2021-12-06 08:15] LABS: HEMATOCRIT 41.6 % (41-53); HEMOGLOBIN 11.8 g/dL (13.5-17.5); MEAN CORPUSCULAR HEMOGLOBIN 19.1 pg (26.0-34.0); MEAN CORPUSCULAR HGB CONC 28.2 G/dL (31.0-37.0); MEAN CORPUSCULAR VOLUME 68 fL (80-100); PLATELET COUNT (AUTO) 68 K/uL (150-450); RED BLOOD CELL COUNT(AUTO) 6.16 MIL/uL (4.50-5.90); RED CELL DISTRIBUTION WIDTH 29.9 % (11.5-14.5)
[2021-12-06 08:43] LABS: BAND NEUTROPHILS % (MANUAL) 3 % (0-5); CORRECTED WHITE BLOOD COUNT 15.5 K/uL (4.5-11.0); LYMPHOCYTES % (MANUAL) 14 % (22-44); MONOCYTES % (MANUAL) 2 % (2-9); SEGMENTED NEUTROPHILS % 81 % (40-70)
[2021-12-06] MEDS ORDERED: PHENYLEPHRINE HCL 800 MG in DEXTROSE 5%-WATER 170 ML IV PRN (08:45)
[2021-12-06] MEDS: ALBUMIN HUMAN 25%-25GM/100ML 100 ML IV SCH ×2 (09:04→15:42)
[2021-12-06] MEDS: ETHYL ALCOHOL 62% ANTISEPTIC NASAL INHALANT 0.6 ML AMPUL NASAL SCH (09:06)
[2021-12-06] MEDS: SODIUM ZIRCONIUM CYCLOSILICATE 5 GM POWDER PACKET PO SCH (09:06)
[2021-12-06] MEDS: HEPARIN SODIUM,PORCINE 5,000 UNITS/ML VIAL SQ SCH ×2 (09:07→16:04)
[2021-12-06] MEDS: DOCUSATE SODIUM 100 MG CAPSULE PO SCH (09:07)
[2021-12-06] MEDS: PANTOPRAZOLE SODIUM 40 MG/VIAL IVP SCH (09:07)
[2021-12-06] MEDS: DEXAMETHASONE SOD PHOS 4 MG/ML VIAL IVP SCH (09:07)
[2021-12-06] MEDS ORDERED: SODIUM CHLORIDE 0.9% 1,000 ML ONE ×2 (09:17→13:51)
[2021-12-06 11:05] LABS: CALCIUM, TOTAL 9.5 mg/dL (8.8-10.5); CREATININE 5.4 mg/dL (0.60-1.30); POTASSIUM 4.1 mmol/L (3.5-5.1)
[2021-12-06] MEDS: REMDESIVIR 100 MG in SODIUM CHLORIDE 0.9% 250 ML IV SCH (11:17)
[2021-12-06] MEDS ORDERED: SODIUM CHLORIDE 0.9% 250 ML IV ONE (11:25)
[2021-12-06] MEDS ORDERED: SODIUM CHLORIDE 0.9% 500 ML IV ONE (11:39)
[2021-12-06] MEDS: VASOPRESSIN 40 UNITS in DEXTROSE 5%-WATER 98 ML IV PRN (12:57)
[2021-12-06] MEDS ORDERED: DAPTOMYCIN 700 MG in SODIUM CHLORIDE 0.9% 50 ML IV SCH (14:00)
[2021-12-06 17:04] LABS: ABG BASE EXCESS -10.7 mmol/L (-2.0-3.0); ABG CARBOXYHEMOGLOBIN 1.5 % (0.0-1.5); ABG HCO3 13.7 mmol/L (22.0-26.0); ABG TOTAL HEMOGLOBIN 13.8 G/dL (12.0-18.0); SOURCE, BLOOD GAS ARTERIAL; TEMPERATURE, FAHRENHEIT, BG 98.6 FAHREN (96.0-98.6)
[2021-12-06 17:06] LABS: ABG OXYGEN SATURATION 62.9 % (95.0-98.0); ABG PCO2 122 mmHg (35-45); ABG PH 6.883 (7.350-7.450); O2 DEVICE,BLOOD GAS VENTILATOR (ROOM AIR); PEEP,BG 14 cm H2O; PO2, ARTERIAL BG 46.3 mmHg (92.0-100.0); SITE, BLOOD GAS ARTERIAL LINE; SPONTANEOUS VT, BG 550 ml; VENT MODE, BG Press. Control Vent (ROOM AIR)
[2021-12-06 17:07] LABS: GLUCOSE,POINT OF CARE 141 MG/DL (70-110)
[2021-12-06 17:07] LABS: INSPIRATORY TIME, BG 0.8 SEC
[2021-12-06 17:11] LABS: CALCIUM, TOTAL 8.3 mg/dL (8.8-10.5); CREATININE 7.03 mg/dL (0.60-1.30); POTASSIUM 5.9 mmol/L (3.5-5.1)
[2021-12-06] MEDS ORDERED: PROPOFOL 1000 MG/ISO-OSM 100 ML IV PRN (17:15)
[2021-12-06] MEDS ORDERED: CISATRACURIUM BESYLATE 100 MG in DEXTROSE 5%-WATER 240 ML IV PRN (17:15)
[2021-12-06] MEDS ORDERED: CISATRACURIUM BESYLATE 2 MG/ML 10 ML VIAL IVP ONE (17:15)
[2021-12-06] MEDS ORDERED: EPINEPHrine 1:10,000 [1 MG/10 ML] SYRINGE ONE ×3 (17:50→17:53)
[2021-12-06] MEDS ORDERED: ADENOSINE 3 MG/ML 2 ML VIAL IVP ONE (17:58)
[2021-12-06] MEDS ORDERED: 0.9% SODIUM CHLORIDE 10 ML SYRINGE IVP ONE (17:58)
[2021-12-06] MEDS ORDERED: ATROPINE SULFATE 0.1 MG/ML 10 ML SYRINGE IVP ONE (17:58)
[2021-12-06] MEDS ORDERED: CALCIUM CHLORIDE 100 MG/ML 10 ML SYRINGE IVP ONE (17:58)
[2021-12-06] MEDS ORDERED: HEPARIN SODIUM,PORCINE 1,000 UNITS/ML VIAL IVP ONE (17:58)
[2021-12-06] MEDS ORDERED: EPINEPHrine 1:10,000 [1 MG/10 ML] SYRINGE IVP ONE (17:58)
[2021-12-06 19:51] LABS: GLUCOSE,POINT OF CARE 110 MG/DL (70-110)
== END 2021-12-06 17:59 | DRG 720 ==
LOC: EMS 13:23 → ICU 18:39
PROVIDERS: ADMIT Hospitalist; ATTEND Hospitalist
PROC: 5A1955Z Respiratory Ventilation, Greater than 96 Consecutive Hours (ICD-10-PCS; 2021-11-29)
PROC: 5A09357 Assistance with Respiratory Ventilation, Less than 24 Consecutive Hours, Continuous Positive Airway Pressure (ICD-10-PCS; 2021-11-29)
PROC: 02HV33Z Insertion of Infusion Device into Superior Vena Cava, Percutaneous Approach (ICD-10-PCS; 2021-11-29)
PROC: 0BJ08ZZ Inspection of Tracheobronchial Tree, Via Natural or Artificial Opening Endoscopic (ICD-10-PCS; 2021-11-29)
PROC: 05HY33Z Insertion of Infusion Device into Upper Vein, Percutaneous Approach (ICD-10-PCS; 2021-11-29)
PROC: B54BZZA Ultrasonography of Right Lower Extremity Veins, Guidance (ICD-10-PCS; 2021-11-29)
PROC: XW033E5 Introduction of Remdesivir Anti-infective into Peripheral Vein, Percutaneous Approach, New Technology Group 5 (ICD-10-PCS; principal; 2021-12-02)
PROC: 5A1D70Z Performance of Urinary Filtration, Intermittent, Less than 6 Hours Per Day (ICD-10-PCS; 2021-12-02)
PROC: XW033H5 Introduction of Tocilizumab into Peripheral Vein, Percutaneous Approach, New Technology Group 5 (ICD-10-PCS; 2021-12-03)
PROC: 5A1D70Z Performance of Urinary Filtration, Intermittent, Less than 6 Hours Per Day (ICD-10-PCS; 2021-12-03)
PROC: 5A1D70Z Performance of Urinary Filtration, Intermittent, Less than 6 Hours Per Day (ICD-10-PCS; 2021-12-05)
PROC: 06HY33Z Insertion of Infusion Device into Lower Vein, Percutaneous Approach (ICD-10-PCS; 2021-12-05)
PROC: B54BZZA Ultrasonography of Right Lower Extremity Veins, Guidance (ICD-10-PCS; 2021-12-05)
PROC: 5A12012 Performance of Cardiac Output, Single, Manual (ICD-10-PCS; 2021-12-06)
PROC: 5A1D70Z Performance of Urinary Filtration, Intermittent, Less than 6 Hours Per Day (ICD-10-PCS; 2021-12-06)
PROC: 06HY33Z Insertion of Infusion Device into Lower Vein, Percutaneous Approach (ICD-10-PCS; 2021-12-06)
DX: A41.9 Sepsis, unspecified organism (principal); J96.21 Acute and chronic respiratory failure with hypoxia; N17.0 Acute kidney failure with tubular necrosis; J12.82 Pneumonia due to coronavirus disease 2019; R65.21 Severe sepsis with septic shock; E43 Unspecified severe protein-calorie malnutrition; K85.90 Acute pancreatitis without necrosis or infection, unspecified; U07.1 COVID-19; D69.6 Thrombocytopenia, unspecified; I13.0 Hypertensive heart and chronic kidney disease with heart failure and stage 1 through stage 4 chronic kidney disease, or unspecified chronic kidney disease; I50.32 Chronic diastolic (congestive) heart failure; I95.3 Hypotension of hemodialysis; I27.20 Pulmonary hypertension, unspecified; D45 Polycythemia vera; E66.01 Morbid (severe) obesity due to excess calories; K76.0 Fatty (change of) liver, not elsewhere classified; N18.9 Chronic kidney disease, unspecified; I42.9 Cardiomyopathy, unspecified; J96.22 Acute and chronic respiratory failure with hypercapnia; D64.9 Anemia, unspecified; G47.31 Primary central sleep apnea; G47.33 Obstructive sleep apnea (adult) (pediatric); R34 Anuria and oliguria; R55 Syncope and collapse; G40.802 Other epilepsy, not intractable, without status epilepticus; E78.00 Pure hypercholesterolemia, unspecified; J98.11 Atelectasis; E87.1 Hypo-osmolality and hyponatremia; R73.9 Hyperglycemia, unspecified; E87.5 Hyperkalemia; Z53.20 Procedure and treatment not carried out because of patient's decision for unspecified reasons; Z93.0 Tracheostomy status; Z68.41 Body mass index [BMI] 40.0-44.9, adult; Z99.11 Dependence on respirator [ventilator] status; Z78.9 Other specified health status; Z79.899 Other long term (current) drug therapy; Z78.1 Physical restraint status
CPT/HCPCS: 36569; 36600; 70450; 71045; 71250; 76770; 76937; 80048; 80053; 80185; 81001; 81002; 82550; 82728; 82805; 82962; 83605; 83615; 83690; 83735; 83880; 84100; 84145; 84484; 85007; 85025; 85362; 85379; 85384; 85610; 85730; 86140; 87040; 87070; 87081; 87086; 87340; 87449; 87804; 87899; 90935; 92950; 93005; 93306; 93970; 94002; 94003; 94640; 94667; 94668; 99291; C9113; G0378; J0131; J0153; J0171; J0456; J0461; J0610; J0692; J0696; J0712; J0878; J1100; J1170; J1265; J1644; J1815; J1956; J2060; J2270; J2370; J2405; J3490; J7030; J7040; J7050; J7060; P9046; Q9967; 36415-L1; 36415-TC; J7613; U0003